=== PATIENT | male | born 1990 | race Caucasian/White ===

== ENCOUNTER 2017-10-31 13:01 | Emergency (ER) | payer OTHER ==
[2017-10-31 13:18] VITALS: BP 157/77; PULSE 70; TEMP 97.7; BMI 29.0
[2017-10-31] MEDS ORDERED: KETOROLAC TROMETHAMINE 30 MG/1 ML VIAL IM ONE (13:44)
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
[2017-10-31] MEDS ORDERED: KETOROLAC TROMETHAMINE 30 MG/1 ML VIAL ONE ×2 (13:54→13:59)
== END 2017-10-31 15:08 | disposition home or self-care (01) ==
LOC: JERFT 13:01 → JER 13:01 → JERFT 15:08
DX: M54.42 Lumbago with sciatica, left side (principal)
CPT/HCPCS: 99281-25